=== PATIENT | male | born 1950 | race Caucasian/White ===

== ENCOUNTER 2018-08-05 11:04 | Day surgery (SDC) | payer BC ==
[~2018-08-05 11:04] MED LIST: Acetaminophen TAB* 325 MG PO ONE; Buffered Lidocaine 1% SYRIN* 1 ML/SYRINGE INTRADERM ONE; Lactated Ringers 1000 ML Bag* 1,000 ML IV SCH
[2018-08-05] MEDS ORDERED: Acetaminophen TAB* 325 MG ONE (12:14)
[2018-08-05] MEDS ORDERED: Famotidine IV* 10 MG/ML 2 ML (20 mg) ONE (12:43)
[2018-08-05] MEDS ORDERED: Naloxone* 0.4 MG/ML 1 ML VIAL IV PRN (13:28)
[2018-08-05] MEDS ORDERED: fentaNYL* 50 MCG/ML 2 ML VIAL (100 MCG VIAL) IV PRN (13:28)
[2018-08-05] MEDS ORDERED: PROCHLORPERAZINE INJ 5 MG/ML 2 ML VIAL IV PRN (13:28)
[2018-08-05] MEDS ORDERED: HYDROcodone/ACETAMIN 5-325 MG* 1 TAB PO PRN (13:28)
[2018-08-05] MEDS ORDERED: Acetaminophen TAB* 325 MG PO PRN (13:28)
[2018-08-05] MEDS ORDERED: Ondansetron INJ* 2 MG/ML VIAL IV PRN (13:28)
[2018-08-05] MEDS ORDERED: DiMENhydriNATE IV* 50 MG/ML VIAL IV PUSH PRN (13:28)
[2018-08-05] MEDS ORDERED: Midazolam* 1 MG/ML 2 ML VIAL (2 MG) ONE (13:42)
[2018-08-05] MEDS ORDERED: fentaNYL* 50 MCG/ML 2 ML VIAL (100 MCG VIAL) ONE (13:42)
[2018-08-05] MEDS ORDERED: Lidocaine 4% TOPICAL* 50 ML TOP.SOLN ONE (13:58)
[2018-08-05] MEDS ORDERED: Lidocain 1% EPI 1:100,000 * 30 ML MDV ONE (13:58)
[2018-08-05] MEDS ORDERED: Oxymetazoline 0.05% NASAL SPR* 15 ML BTL ONE (13:58)
[2018-08-05] MEDS ORDERED: Ondansetron INJ* 2 MG/ML VIAL ONE (14:19)
[2018-08-05] MEDS ORDERED: Dexamethasone IV* 4 MG/ML 1 ML (4 MG) ONE ×2 (14:19→14:27)
[2018-08-05] MEDS ORDERED: Cisatracurium* 2 MG/ML MDV 5 ML ONE (14:19)
[2018-08-05] MEDS ORDERED: Succinylcholine* 20 MG/ML 10 ML VIAL ONE (14:19)
[2018-08-05] MEDS ORDERED: Propofol* 10 MG/ML 20 ML BTL ONE (14:19)
[2018-08-05] MEDS ORDERED: Lidocaine 2% PF * 5 ML VIAL ONE (14:19)
[2018-08-05] MEDS ORDERED: EPHEDrine (Pressors)* 50 MG/ML VIAL ONE (14:25)
[2018-08-05] MEDS ORDERED: Metoprolol Tartrate IV* 1 MG/ML 5 ML VIAL ONE (15:11)
[2018-08-05 16:50] VITALS: BP 129/62
--- NOTE | 2018-08-05 23:26 | OP ---
DATE OF OPERATION: 08/05/18 - SDS DATE OF : 54 SURGEON: Karan Camacho MD PRE-OP DIAGNOSIS: Chronic maxillary ethmoidal sinusitis. POST-OP DIAGNOSIS: Chronic maxillary ethmoidal sinusitis. OPERATIVE PROCEDURE: Bilateral functional endoscopic sinus surgery with maxillary antrostomies with debridement of tissue and anterior ethmoidectomies under general endotracheal anesthesia. COMPLICATIONS: None. DISPOSITION: Good. SPECIMEN: Left and right maxillary and ethmoidal sinus contents. DESCRIPTION OF PROCEDURE: The patient was taken to the operating room, placed in a supine position on the operating room table, general anesthesia was induced and he was orotracheally intubated. Nose was packed bilaterally with cottonoids impregnated with oxymetazoline and 4% lidocaine and he was draped for the surgery. Using the endoscopes, the middle turbinate uncinate process, lateral wall, anterior ethmoid bullae were injected with 1% lidocaine with 1:100 ,000 epinephrine. The middle turbinate was medialized. The curved seeker was used to identify the ostium and maxillary sinus, this was then used to help medialize the uncinate process. A sickle knife was used to make an anterior incision and the uncinate process was debrided with the Blakesley. The maxillary and ostium was then debrided and widened using the back biters through cuts and Blakesley. The anterior ethmoid was entered with the curette and then the bony spicules were taken down with the Blakesley. Stammberger Sinu -Foam was placed, this was done bilaterally. The patient tolerated the procedure well, no complications, and transferred to the recovery room in stable condition. [id number]/[facility] #: [id number] [facility]ENTER[facility]ander
== END 2018-08-05 16:50 | disposition home or self-care (01) ==
LOC: OR 11:04
PROVIDERS: ATTEND Otolaryngology
DX: J32.0 Chronic maxillary sinusitis (principal); J32.2 Chronic ethmoidal sinusitis; I10 Essential (primary) hypertension; K21.9 Gastro-esophageal reflux disease without esophagitis; F32.9 Major depressive disorder, single episode, unspecified
CPT/HCPCS: 88305; A9270-GY; J0330; J1100; J2250; J2405; J2704; J3010; J3490